=== PATIENT | male | born 1985 | race Caucasian/White ===

== ENCOUNTER 2019-11-23 00:27 | Emergency (ER) | payer MEDICAID ==
[~2019-11-23] VITALS: Ht 180.3 cm; Wt 65.8 kg
[2019-11-23 00:37] VITALS: BP 130/78
== END 2019-11-23 01:42 | disposition home or self-care (01) ==
LOC: ER 00:27
DX: F41.9 Anxiety disorder, unspecified (principal); F15.10 Other stimulant abuse, uncomplicated; Z60.2 Problems related to living alone